=== PATIENT | male | born 1995 | race Two or more races ===

== ENCOUNTER 2016-12-08 15:51 | Emergency (ER) | payer MEDICAID ==
[~2016-12-08] VITALS: Ht 177.8 cm; Wt 77.1 kg
--- NOTE | 2016-12-08 16:11 | Emergency Room Report ---
History of Present Illness General Chief Complaint: Medical Clearance Source: Patient Present Illness HPI 21-year-old male presents emergency department for medical clearance for incarceration. 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 He should states that he just started taking antibiotics for wound on the bottom of the right foot that was previously evaluated at an ED and required drainage. Denies fevers/chills, rashes or abdominal pain. Pt states he does not recall if his tetanus was updated at previous ED visit, pt. states tetanus status is unknown. pt states he has not slept in 4 days. denies SI/HI. Denies CP, Palpitations, LOC, AMS, dizziness, Changes in Vision, Sensation, paresthesias, or a sudden severe headache. Allergies: Coded Allergies: No Known Allergies (Unverified , 12/08/16) Patient History Past Medical History: see triage record Past Surgical History: none Pertinent Family History: none Social History: Reports: drug use - meth and heroin last use 4 am Reviewed Nursing Documentation: PMH: Agreed, PSxH: Agreed Nursing Documentation-PMH Past Medical History: No Stated History Review of Systems All Other Systems: negative except mentioned in HPI Physical Exam Vital Signs Date Time Temp Pulse Resp B/P Pulse Ox O2 Delivery O2 Flow Rate FiO2 12/08/16 15:55 98.4 77 20 118/74 100 Room Air Sp02 EP Interpretation: reviewed, normal General Appearance: no apparent distress, alert, GCS 15, non-toxic, lethargic Head: normocephalic, atraumatic Eyes: bilateral eye PERRL, bilateral eye normal inspection ENT: hearing grossly normal, normal pharynx, no angioedema, normal voice Neck: full range of motion, supple/symm/no masses Respiratory: lungs clear, normal breath sounds, speaking full sentences Cardiovascular #1: regular rate, rhythm, no edema Gastrointestinal: normal bowel sounds, non tender, soft, no guarding, no rebound Musculoskeletal: back normal, gait/station normal, normal range of motion, tender - ttp to the right heel , where there is a 1 cm ulcer. Neurologic: alert, oriented x3, responsive, motor strength/tone normal, sensory intact, normal gait, speech normal Psychiatric: judgement/insight normal, memory normal, mood/affect normal Skin: normal color, no rash, warm/dry, well hydrated, other - Foot ulcer to the heel of the right foot. no erythema to indicate acute infect. ulcer is 1cm in diameter and involves superficial subcutaneous layers. Medical Decision Making PA Attestation Dr. Alba is my supervising Physician whom patient management has been discussed with. Diagnostic Impression: Primary Impression: Medical clearance for incarceration Additional Impressions: Foot ulcer, right Qualified Codes: L97.511 - Non-pressure chronic ulcer of other part of right foot limited to breakdown of skin Substance use disorder ER Course 21-year-old male presents emergency department for medical clearance for incarceration. 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 He should states that he just started taking antibiotics for wound on the bottom of the right foot that was previously evaluated at an ED and required drainage. Denies fevers/chills, rashes or abdominal pain. Pt states he does not recall if his tetanus was updated at previous ED visit, pt. states tetanus status is unknown. pt states he has not slept in 4 days. denies SI/HI. Denies CP, Palpitations, LOC, AMS, dizziness, Changes in Vision, Sensation, paresthesias, or a sudden severe headache. Ddx considered but are not limited to Head Trauma, IN, ACS, SI/HI, URI, SAH, Fractures, Dislocations, Tazer. barbs, Abrasions, cellulitis, chronic ulcer, non-compliance Vital signs: are WNL, pt. is afebrile H&PE are most consistent with: Foot ulcer to the heel of the right foot. no erythema to indicate acute infect. ulcer is 1cm in diameter and involves superficial subcutaneous layers. ORDERS: none required at this time, the diagnosis is clinical. ED INTERVENTIONS: - Wound care performed by RN. -Pt. was given a pair of socks, as the socks he was wearing appeared to be too tight causing poor circulation - Tetanus vaccination was administered. DISCHARGE: At this time pt. is stable for d/c to law enforcement. Will provide printed patient care instructions, and any necessary prescriptions. Care plan and follow up instructions have been discussed with the patient prior to discharge. Last Vital Signs Date Time Temp Pulse Resp B/P Pulse Ox O2 Delivery O2 Flow Rate FiO2 12/08/16 15:55 98.4 77 20 118/74 100 Room Air Condition: Stable Departure Forms: Detention Clearance Patient Instructions: Medical Screening Exam Additional Instructions: Take previously prescribed medications as directed. Follow up with PCP in 3-5 days Return sooner to ED if new symptoms occur, or current symptoms become worse. - Please note that this Emergency Department Report was dictated using [employer] sales consultant technology software, occasionally this can lead to erroneous entry secondary to interpretation by the dictation equipment. Rosey Nielsen Dec 08, 2016 16:11
[2016-12-08 16:18] VITALS: BP 118/74
[2016-12-08] MEDS ORDERED: Tetanus/Diptheria/Pertussis Vaccine 0.5ml Syr IM ONE (16:30)
[2016-12-08 17:01] VITALS: BP 118/74
== END 2016-12-08 17:02 ==
LOC: EMR 16:36
DX: F15.10 Other stimulant abuse, uncomplicated (principal); F11.10 Opioid abuse, uncomplicated; L97.511 Non-pressure chronic ulcer of other part of right foot limited to breakdown of skin; Z02.89 Encounter for other administrative examinations
CPT/HCPCS: 90471; 90715; 96372; 99283